=== PATIENT | male | born 2000 | race African-American/Black ===

== ENCOUNTER 2023-11-21 18:57 | Observation (INO) | payer OTHER ==
[2023-11-21] MEDS ORDERED: methylPREDNISolone NA SUCC 125 MG/2 ML VIAL ONE (19:06)
[2023-11-21] MEDS ORDERED: ALBUTEROL SO4 2.5/IPRATROPIUM 0.5 INH SOL 3 ML VIAL.NEB. NEB ONE ×2 (19:06→19:44)
[2023-11-21] MEDS: ALBUTEROL SO4 2.5/IPRATROPIUM 0.5 INH SOL 3 ML VIAL.NEB. NEB SCH (19:20)
[2023-11-21] MEDS: methylPREDNISolone NA SUCC 125 MG/2 ML VIAL IVPUSH ONE (19:20)
[2023-11-21] MEDS ORDERED: MAGNESIUM SULFATE IN WATER 2 GM/50 ML IVPB IVPB ONE (19:28)
[2023-11-21] MEDS ORDERED: ACETAMINOPHEN INJECTION 100 ML ONE (19:28)
[2023-11-21] MEDS: ACETAMINOPHEN 1000 MG/100 ML BAG IVPB ONE (19:32)
[2023-11-21] MEDS: SODIUM CHLORIDE 1,000 ML IV ONE (19:33)
[2023-11-21 19:41] LABS: HEMOGLOBIN 16.2 G/dL (11.7-16.9); MCH 31.5 pg (25.7-33.7); MCHC 33.1 g/dl (32.0-35.9); MEAN CELL VOLUME 95.4 fl (80-96); MEAN PLT VOLUME 10.8 fl (7.5-11.1); PLATELET COUNT 101.7 10^3/uL (134-434); RBC 5.14 10^6/uL (4.00-5.60); RDW 14.2 % (11.9-15.9); WHITE BLOOD COUNT 8.2 10^3/uL (4.0-10.8)
[2023-11-21] MEDS: MAGNESIUM SULF 50% (8.12 MEQ/2 ML-1 GM VIAL) IVPB ONE (19:42)
[2023-11-21] MEDS: ACETAMINOPHEN 500 MG TABLET (FP) PO ONE (19:43)
[2023-11-21 20:01] LABS: BILIRUBIN,TOTAL 0.3 mg/dl (0.2-1); CALCIUM 9.8 mg/dl (8.5-10.1); CREATININE 0.9 mg/dl (0.6-1.3); TOT PROT 8.2 g/dl (6.4-8.2)
[2023-11-21 20:58] LABS: VENOUS BASE EXCESS 1.2 mmol/L (-2-2); VENOUS O2 SATURATION 37.3 % (70-80); VENOUS PCO2 53.2 mmHg (38-52); VENOUS PH 7.348 (7.310-7.410)
[2023-11-22] MEDS: ALBUTEROL SO4 2.5/IPRATROPIUM 0.5 INH SOL 3 ML VIAL.NEB. NEB PRN (01:30)
[2023-11-22] MEDS: MELATONIN 5 MG TABLETS PO PRN (01:49)
[2023-11-22 02:43] VITALS: RESP 20; BMI 19.5
[2023-11-22] MEDS: methylPREDNISolone NA SUCC 40 MG/1 ML VIAL IVPUSH SCH (02:48)
[2023-11-22] MEDS: guaiFENesin 200 MG/10 ML 10 ML UNIT-DOSE CUPS PO PRN (03:29)
[2023-11-22 08:40] LABS: CALCIUM 9.7 mg/dl (8.5-10.1); CREATININE 0.8 mg/dl (0.6-1.3); POTASSIUM 5.4 mmol/L (3.5-5.1)
[2023-11-22 09:20] LABS: HEMOGLOBIN 15.1 G/dL (11.7-16.9); MCH 32.3 pg (25.7-33.7); MCHC 33.6 g/dl (32.0-35.9); MEAN CELL VOLUME 96.2 fl (80-96); MEAN PLT VOLUME 11.5 fl (7.5-11.1); PLATELET COUNT 97.2 10^3/uL (134-434); RBC 4.68 10^6/uL (4.00-5.60); RDW 13.8 % (11.9-15.9)
[2023-11-22 11:13] LABS: ANISOCYTOSIS 2+; PLATELET ESTIMATE DECREASED; TEAR DROP CELLS 1+
[2023-11-22] MEDS: ALBUTEROL SO4 2.5/IPRATROPIUM 0.5 INH SOL 3 ML VIAL.NEB. NEB SCH (11:48)
[2023-11-22] MEDS ORDERED: ALBUTEROL SO4 HFA INHALER IH PRN (14:18)
[2023-11-22] MEDS: BUDESONIDE/FORMETEROL FUMARATE 160/4.5 mcg INHALER IH SCH (15:26)
[2023-11-22 17:33] VITALS: BP 127/73; PULSE 58; TEMP 97.9
== END 2023-11-22 21:00 | disposition left against medical advice (07) ==
LOC: FER 18:57 → FM/S 21:36
PROVIDERS: ADMIT Internal Medicine
PROC: 3E033NZ Introduction of Analgesics, Hypnotics, Sedatives into Peripheral Vein, Percutaneous Approach (ICD-10-PCS; principal; 2023-11-21)
PROC: 3E0F7GC Introduction of Other Therapeutic Substance into Respiratory Tract, Via Natural or Artificial Opening (ICD-10-PCS; 2023-11-21)
PROC: 3E033GC Introduction of Other Therapeutic Substance into Peripheral Vein, Percutaneous Approach (ICD-10-PCS; 2023-11-21)
PROC: 3E0337Z Introduction of Electrolytic and Water Balance Substance into Peripheral Vein, Percutaneous Approach (ICD-10-PCS; 2023-11-21)
DX: J45.901 Unspecified asthma with (acute) exacerbation (principal); R06.09 Other forms of dyspnea; R06.01 Orthopnea; F32.A Depression, unspecified; Z59.00 Homelessness unspecified; F17.200 Nicotine dependence, unspecified, uncomplicated; Z91.013 Allergy to seafood; Z91.010 Allergy to peanuts
CPT/HCPCS: 0241U-QW; 36415; 71045-TC-FY; 80048; 80053; 82803; 83605; 85025; 85027; 93005; 94640; 96361; 96365; 96366; 96367; 96372; 96374; 96375; 96376; 99285-25; G0378; J0131